=== PATIENT | female | born 2005 | race Caucasian/White ===

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

== ENCOUNTER 2023-11-02 17:41 | Emergency (ER) | payer OTHER ==
[~2023-11-02] VITALS: Ht 167.6 cm; Wt 51.7 kg
[~2023-11-02 17:41] MED LIST: AMOX1TAB8 PO; IBUP-2213 PO
[2023-11-02 18:14] VITALS: BP 113/72; PULSE 100; RESP 18; TEMP 99; O2SAT 98
[2023-11-02] MEDS ORDERED: ONDA-188 SL (18:44)
[2023-11-02] MEDS ORDERED: IBUP-2213 PO (18:44)
[2023-11-02] MEDS ORDERED: ACET-9882 PO (18:44)
[2023-11-02] MEDS ORDERED: BPM/480S48 PO (18:44)
[2023-11-02] MEDS ORDERED: BENZ-256 MM (18:44)
[2023-11-02 18:50] VITALS: BP 118/71; PULSE 100; RESP 18; TEMP 98; O2SAT 98
[2023-11-02 18:51] LABS: FLU A ANTIGEN negative (NEGATIVE); FLU B ANTIGEN POSITIVE (NEGATIVE)
[2023-11-02] MEDS ORDERED: TAM75 PO (19:08)
== END 2023-11-02 18:50 | disposition home or self-care (01) ==
LOC: MED 17:41
DX: J10.1 Influenza due to other identified influenza virus with other respiratory manifestations (principal); Z20.822 Contact with and (suspected) exposure to COVID-19; Z79.899 Other long term (current) drug therapy
CPT/HCPCS: 99283